=== PATIENT | male | born 1980 | race Caucasian/White ===

== ENCOUNTER 2016-07-24 00:08 | Emergency (ER) ==
[2016-07-24 00:20] VITALS: BP 162/105; TEMP 97.5; BMI 29.5
[2016-07-24] MEDS ORDERED: TENIVAC IM ONE (00:29)
[2016-07-24] MEDS ORDERED: KEFLEX PO STA (00:30)
--- NOTE | 2016-07-24 00:34 | ED.PDOC ---
General ED Provider: Dr. SHAD KAUFFMAN-ER Chief Complaint: Toe Pain/Injury Stated Complaint: bill got an ingrown toenail Time Seen by Physician: 00:15 Mode of Arrival: Walk-In Information Source: Patient, Family Exam Limitations: No limitations Primary Care Provider: [facility] Nursing and Triage Documentation Reviewed and Agree: Yes Skin Complaint Exam - Skin/Soft Tissue Complaint/Exam Onset/Duration: several days Symptoms Are: Still present Timing: Constant Initial Severity: Mild Current Severity: Mild Location: lateral edge left great toe Character: Reports: Redness, Swelling, Raised, Painful Aggravating: Reports: Touch Alleviating: Reports: None Associated Signs and Symptoms: Reports: Drainage, Tenderness. Denies: Fever, Chills, Itching, Bruising, Red streaks, Joint swelling Related Surgical History: Reports: None Recent Exposure to Others w/Similar Symptoms: No Skin Findings: Present: Erythema, Pustules Joint Tenderness Present: No Differential Diagnoses: Infection, Other Review of Systems - Review Of Systems Constitutional: Reports: No symptoms Eyes: Reports: No symptoms Ears, Nose, Mouth, Throat: Reports: No symptoms Respiratory: Reports: No symptoms Cardiac: Reports: No symptoms GI: Reports: No symptoms : Reports: No symptoms Musculoskeletal: Reports: No symptoms Skin: Reports: No symptoms Neurological: Reports: No symptoms Endocrine: Reports: No symptoms Hematologic/Lymphatic: Reports: No symptoms All Other Systems: Reviewed and Negative Past Medical History - Past Medical History Endocrine: Reports: None Cardiovascular: Reports: None Respiratory: Reports: None Hematological: Reports: None Gastrointestinal: Reports: GERD Genitourinary: Reports: None Neuro/Psych: Reports: Anxiety, Depression, Bipolar Disorder Musculoskeletal: Reports: None Cancer: Reports: None - Surgical History General Surgical History: Reports: Hernia Repair - Family History Family History: Reports: Other (Psych illness) - Social History Smoking Status: Current every day smoker, Heavy tobacco smoker Hx Substance Use: No Alcohol Screening: None Lives: With family - Immunizations Tetanus Shot up to Date: No (unsure) Physical Exam - Physical Exam Appearance: Well-appearing, No pain distress, Well-nourished Pain Distress: Mild Eyes: MEGAN, EOMI, Conjunctiva clear ENT: Ears normal, Nose normal, Oropharynx normal Neck: Supple Respiratory: Airway patent, Breath sounds clear, Breath sounds equal, Respirations nonlabored Cardiovascular: RRR, Pulses normal, No rub, No murmur GI/: Soft, Nontender, No masses, Bowel sounds normal, No Organomegaly Musculoskeletal: Normal strength, ROM intact, No edema, No calf tenderness Skin: Warm (left ingrown toe nail--lateral edge--erythema), Dry, Normal color Neurological: Sensation intact, Motor intact, Reflexes intact, Cranial nerves intact, Alert, Oriented Psychiatric: Affect appropriate, Mood appropriate Critical Care Note - Critical Care Note Total Time (mins): 0 Course - Course Orders, Labs, Meds: Orders Category Date Time Status Cephalexin [Keflex] MEDS 07/24/16 00:30 Stat 500 mg PO ONCE STA Tetanus and Diphtheria Tox/Pf [Tenivac] MEDS 07/24/16 00:29 Once 0.5 ml IM .ONCE ONE Medications Generic Name Dose Route Start Last Admin Trade Name Freq PRN Reason Stop Dose Admin Cephalexin 500 mg 07/24/16 00:30 Keflex PO 07/24/16 00:31 ONCE STA Tetanus/Diphtheria Toxoids Adsorbed 0.5 ml 07/24/16 00:29 Tenivac IM 07/24/16 00:30 .ONCE ONE i offered to do a wedge procedure and remove the ingrowing toenail but he declines--he understands risk of worsening infection but still declines..he has seen podiatry befor and prefers for them to do it Vital Signs: Temp Pulse Resp BP Pulse Ox 07/24/16 00:11 97.5 F L 96 H 20 162/105 H 98 Departure - Departure Time of Disposition: 00:34 Disposition: HOME SELF-CARE Discharge Problem: Ingrowing toenail Instructions: Ingrown Nail (ED) Condition: Good Pt referred to PMD for follow-up: Yes Additional Instructions: keflex 500mg bid x 7days--epsom salts tid --f/u with program management specialist on monday Allergies/Adverse Reactions: Allergies No Known Allergies Allergy (Verified 07/24/16 00:21) Home Medications: Ambulatory Orders Ibuprofen 400 mg PO Q6H PRN 10/10/15 Naproxen Sodium [Aleve] 440 mg PO Q4H PRN 10/10/15 Disposition Discussed With: Patient, Family
== END 2016-07-24 01:30 | disposition home or self-care (01) ==
LOC: ED 00:08
DX: L60.0 Ingrowing nail (principal); F17.210 Nicotine dependence, cigarettes, uncomplicated
CPT/HCPCS: 36415; 82947; 83036; 90471; 99282